=== PATIENT | male | born 1950 | race Two or more races ===

== ENCOUNTER 2017-06-25 15:40 | Emergency (ER) | payer BC, OTHER ==
[2017-06-25 16:03] VITALS: BP 160/81; PULSE 96; TEMP 99; BMI 26.6
[2017-06-25] MEDS ORDERED: morphine CARPU-JECT 4 MG/1 ML DISP.SYRIN ONE ×2 (16:04→17:46)
[2017-06-25] MEDS ORDERED: morphine CARPU-JECT 4 MG/1 ML DISP.SYRIN IVPUSH ONE ×2 (16:04→17:44)
[2017-06-25] MEDS ORDERED: ONDANSETRON 4 MG/2 ML VIAL ONE (16:04)
[2017-06-25] MEDS ORDERED: ONDANSETRON 4 MG/2 ML VIAL IVPUSH ONE (16:04)
[2017-06-25 16:33] LABS: BASOPHIL 1.2 % (0-2.0); EOSINOPHIL 0.9 % (0-4.5); MCH 30.6 pg (25.7-33.7); MCHC 34.1 g/dl (32.0-35.9); MEAN CELL VOLUME 89.8 fl (80-96); MEAN PLT VOLUME 7.9 fl (7.5-11.1); NEUTROPHILS 80.4 % (42.8-82.8); PLATELET COUNT 266 K/MM3 (134-434); RDW 12.1 % (11.9-15.9)
[2017-06-25] MEDS ORDERED: DIPHTH,PERTUSS(ACELL),TET 0.5 ML DISP.SYRIN IM ONE (16:35)
[2017-06-25] MEDS ORDERED: ceFAZolin 2 GRAM PREMIX BAG IVPB ONE (16:35)
[2017-06-25 16:36] LABS: ACTIVATED PTT 25.9 SECONDS (24.0-38.9)
[2017-06-25 16:38] LABS: ALBUMIN 4.1 g/dl (3.5-5.0); ALK PHOS 64 U/L (32-92); ANION GAP 7 (8-16); BILIRUBIN,TOTAL 0.9 mg/dl (0.2-1.0); CALCIUM 9.3 mg/dl (8.4-10.2); CO2 24 mmol/L (22-28); CREATININE 1.1 mg/dl (0.6-1.3); GLUCOSE,RANDOM 169 mg/dl (74-106); SGOT/AST 25 U/L (10-42); SGPT/ALT 18 U/L (10-40); TOT PROT 7.1 g/dl (6.4-8.3)
[2017-06-25 16:41] LABS: INR 1.1 (0.82-1.09); PROTHROMBIN TIME (PATIENT) 12.3 SEC (10.2-13.0)
[2017-06-25] MEDS ORDERED: ceFAZolin SODIUM 1 GM VIAL ONE (17:32)
--- NOTE | 2017-06-25 17:44 | PDOC ---
History of Present Illness <Kathleen Montejo - Last Filed: 06/25/17 18:46> - History of Present Illness Initial Comments: 06/25/17 17:44 " The patient is a 67 year old male, with a significant past medical history of hypertension, who presents to the emergency department with injury to right foot sustained while at work today. 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 He states that his leg was lifted about a foot in the air before he was able to free it. He states he feels his right foot was crushed between the equipment. Denies headstrike/LOC. Denies falling to the ground or injuring anything else. He states he is able to move his toes and he denies decreased sensation to the area. The patient reports swelling and bruising to the right foot. The patient was wearing sneakers at the time of the accident. He denies chest pain, shortness of breath, headache and dizziness. He denies fever, chills, nausea, vomit, diarrhea and constipation. He denies dysuria, frequency, urgency and hematuria. Allergies: NKDA Social history: ppd tobacco use. Occasional alcohol consumption. PCP - Dr. Cornel Vargas <Marco Castillo - Last Filed: 06/25/17 19:55> - General Chief Complaint: Injury Stated Complaint: RT ANKLE INJURY Time Seen by Provider: 06/25/17 15:46 Past History <Kathleen Montejo - Last Filed: 06/25/17 18:46> - Past Medical History HTN: Yes - Suicide/Smoking/Psychosocial Hx Smoking History: Current every day smoker Have you smoked in the past 12 months: Yes Number of Cigarettes Smoked Daily: 20 Information on smoking cessation initiated: Yes 'Breaking Loose' booklet given: 06/25/17 Hx Alcohol Use: (social) <Marco Castillo - Last Filed: 06/25/17 19:55> - Past Medical History Allergies/Adverse Reactions: Allergies Allergy/AdvReac Type Severity Reaction Status Date / Time No Known Allergies Allergy Verified 06/25/17 15:44 Home Medications: Ambulatory Orders Cephalexin [Keflex] 500 mg PO BID #14 capsule 06/25/17 Lisinopril 5 mg PO DAILY 06/25/17 Oxycodone HCl/Acetaminophen [Percocet 5-325 mg Tablet] 1 tab PO Q6H #10 tablet MDD 4 tabs 06/25/17 Review of Systems - Review of Systems Comments:: 06/25/17 17:47 """GENERAL/CONSTITUTIONAL: No fever or chills. No weakness. HEAD, EYES, EARS, NOSE AND THROAT: No change in vision. No ear pain or discharge. No sore throat. CARDIOVASCULAR: No chest pain or shortness of breath. RESPIRATORY: No cough, wheezing, or hemoptysis. GASTROINTESTINAL: No nausea, vomiting, diarrhea or constipation. GENITOURINARY: No dysuria, frequency, or change in urination. MUSCULOSKELETAL: (+) pain, swelling, bruising and open wound to right foot s/p traumatic injury. No neck or back pain. SKIN: (+) open wound to right foot. No rash NEUROLOGIC: No headache, vertigo, loss of consciousness, or change in strength/ sensation. ENDOCRINE: No increased thirst. No abnormal weight change. HEMATOLOGIC/LYMPHATIC: No anemia, easy bleeding, or history of blood clots. ALLERGIC/IMMUNOLOGIC: No hives or skin allergy. """ <Marco Castillo - Last Filed: 06/25/17 19:55> *Physical Exam - Vital Signs Last Vital Signs Temp Pulse Resp BP Pulse Ox 99 F 96 H 18 160/81 96 06/25/17 15:40 06/25/17 15:40 06/25/17 15:40 06/25/17 15:40 06/25/17 15:40 <Kathleen Montejo - Last Filed: 06/25/17 18:46> - Vital Signs Last Vital Signs Temp Pulse Resp BP Pulse Ox 99 F 96 H 18 160/81 96 06/25/17 15:40 06/25/17 15:40 06/25/17 15:40 06/25/17 15:40 06/25/17 15:40 - Physical Exam Comments: 06/25/17 17:48 """GENERAL: Awake, alert, and fully oriented, in no acute distress HEAD: No signs of trauma EYES: PERRLA, EOMI, sclera anicteric, conjunctiva clear ENT: Auricles normal inspection, hearing grossly normal, nares patent, oropharynx clear without exudates. Moist mucosa NECK: Nontender, no stepoffs, Normal ROM, supple, no lymphadenopathy, JVD, or masses LUNGS: Breath sounds equal, clear to auscultation bilaterally. No wheezes, and no crackles HEART: Regular rate and rhythm, normal S1 and S2, no murmurs, rubs or gallops ABDOMEN: Soft, nontender, normoactive bowel sounds. No guarding, no rebound. No masses EXTREMITIES: (+) Right foot - with significant swelling to bilateral malleoli. 3cm stellate laceration to dorsum of foot, distal pulses intact, sensation intact to light touch NEUROLOGICAL: Cranial nerves II through XII intact. 5/5 strength and sensation in all extremities, Normal speech, normal gait SKIN: Warm, Dry, normal turgor, no rashes or lesions noted. """ <AnnaMarco - Last Filed: 06/25/17 19:55> Procedures - Splinting Splint Location: Right: Ankle Pre-Proc Neuro Vasc Exam: normal Hand-Made Type: fiberglass Splint Type: Yes: Short Leg Post-Proc Neuro Vasc Exam: normal Filiberto Bandage: yes, 3" - Laceration/Wound Repair Right Dorsal Foot Wound Length: 2.6 to 5.0 cm Wound Explored: clean Wound's Depth, Shape: superficial, linear Irrigated w/ Saline: Yes Anesthesia: 1% Lidocaine Wound Debrided: minimal Wound Repaired With: Sutures Suture Size/Type: 3:0 Number of Sutures: 6 Layer Closure: No Sterile Dressing Applied: Yes Splint Applied: Yes Type of Splint Applied: Posterior short leg <AnnaMarco - Filed: 06/25/17 19:55> ED Treatment Course - LABORATORY CBC & Chemistry Diagram: 06/25/17 16:10 06/25/17 16:10 - ADDITIONAL ORDERS Additional order review: Laboratory Results 06/25/17 06/25/17 16:10 16:10 PT with INR 12.3 INR 1.10 PTT (Actin FS) 25.9 L Sodium 131 L Potassium 4.0 Chloride 100 Carbon Dioxide 24 Anion Gap 7 L BUN 18 Creatinine 1.1 Creat Clearance w eGFR > 60 Random Glucose 169 H Calcium 9.3 Total Bilirubin 0.9 AST 25 ALT 18 Alkaline Phosphatase 64 Total Protein 7.1 Albumin 4.1 06/25/17 16:10 RBC 4.41 MCV 89.8 MCHC 34.1 RDW 12.1 MPV 7.9 Neutrophils % 80.4 Lymphocytes % 9.3 Monocytes % 8.2 Eosinophils % 0.9 Basophils % 1.2 - RADIOLOGY Radiograph Interpretation: EXAM#: TYPE/EXAM: RESULT: RAD/ANKLE FOOT-RIGHT* RAD/CHEST X-RAY PORTABLE* RAD/LEG TIB/FIB-RIGHT Status post fall Chest x-ray, frontal view. No prior is available for comparison. The cardiac silhouette is within normal limits in size with mild unfolding of the aortic arch and curvilinear calcification of its wall. There are mild perihilar increased lung markings without evidence of focal infiltrates. Mild to moderate elevation of the right hemidiaphragm. Mediastinum and visualized osseous structures appear intact with mild dextroscoliosis of the thoracic spine and mild degenerative disc disease Impression: See discussion above. No acute cardiopulmonary disease is present X-ray of the right leg 4 views were submitted for evaluation. There are vascular calcifications, posteriorly. A faint lucent line is seen at the tip of the medial malleolus suspicious for a fracture. The ankle mortise is intact Impression: Nondisplaced fracture at the tip of the medial malleolus X-ray of the right foot and ankle, 6 views. There is [id number] lateral and mild medial malleolus soft tissue swelling. Lucent line at the tip of the medial malleolus consistent with a nondisplaced avulsion fracture. There is cortical interruption along lateral margin of the lateral malleolus seen on a single image only. Cannot rule out a nondisplaced fracture. There is also a questionable lucent line seen in medial aspect of the navicular bone, seen on the frontal view only. Cannot rule out a nondisplaced fracture. Minimal osteoarthritic changes involving the first metatarsal phalangeal joint. Impression: Nondisplaced fracture at the tip of the medial malleolus. Bimalleolar soft tissue swelling, lateral more than medial. Questionable nondisplaced lateral malleolar fracture. There is also a lucent line in medial aspect of the navicular bone seen on the frontal view of the right foot only. Cannot rule out a nondisplaced fracture. Correlation with CT scan of the right foot and ankle is needed for further evaluation Reported By: Daryl Mane MD 06/25/17 1680 - Medications Given in the ED: ED Medications Discontinued Medications Generic Name Dose Route Start Last Admin Trade Name Freq PRN Reason Stop Dose Admin Cefazolin Sodium/Dextrose 2 gm 06/25/17 16:35 06/25/17 17:55 Ancef 2 Gm Premixed Ivpb - IVPB 06/25/17 16:36 2 gm ONCE ONE Administration Diphtheria/Tetanus/Acell Pertussis 0.5 ml 06/25/17 16:35 06/25/17 17:20 Boostrix - IM 06/25/17 16:36 0.5 ml .ONCE ONE Administration Morphine Sulfate 4 mg 06/25/17 16:04 06/25/17 16:10 Morphine Injection - IVPUSH 06/25/17 16:05 4 mg ONCE ONE Administration Morphine Sulfate 4 mg 06/25/17 17:44 06/25/17 17:50 Morphine Injection - IVPUSH 06/25/17 17:45 4 mg ONCE ONE Administration Ondansetron HCl 4 mg 06/25/17 16:04 06/25/17 16:05 Zofran Injection IVPUSH 06/25/17 16:05 4 mg ONCE ONE Administration <Kathleen Montejo - Last Filed: 06/25/17 18:46> - LABORATORY CBC & Chemistry Diagram: 06/25/17 16:10 06/25/17 16:10 - ADDITIONAL ORDERS Additional order review: Laboratory Results 06/25/17 06/25/17 16:10 16:10 PT with INR 12.3 INR 1.10 PTT (Actin FS) 25.9 L Sodium 131 L Potassium 4.0 Chloride 100 Carbon Dioxide 24 Anion Gap 7 L BUN 18 Creatinine 1.1 Creat Clearance w eGFR > 60 Random Glucose 169 H Calcium 9.3 Total Bilirubin 0.9 AST 25 ALT 18 Alkaline Phosphatase 64 Total Protein 7.1 Albumin 4.1 06/25/17 16:10 RBC 4.41 MCV 89.8 MCHC 34.1 RDW 12.1 MPV 7.9 Neutrophils % 80.4 Lymphocytes % 9.3 Monocytes % 8.2 Eosinophils % 0.9 Basophils % 1.2 - RADIOLOGY Radiology Studies Ordered: Category Date Time Status ANKLE & FOOT-RIGHT* [RAD] Stat Radiology 06/25/17 15:59 Ordered CHEST X-RAY PORTABLE* [RAD] Stat Radiology 06/25/17 15:59 Ordered LEG TIB/FIB-RIGHT [RAD] Stat Radiology 06/25/17 15:59 Ordered - Medications Given in the ED: ED Medications Discontinued Medications Generic Name Dose Route Start Last Admin Trade Name Freq PRN Reason Stop Dose Admin Diphtheria/Tetanus/Acell Pertussis 0.5 ml 06/25/17 16:35 06/25/17 17:20 Boostrix - IM 06/25/17 16:36 0.5 ml .ONCE ONE Administration Morphine Sulfate 4 mg 06/25/17 16:04 06/25/17 16:10 Morphine Injection - IVPUSH 06/25/17 16:05 4 mg ONCE ONE Administration Ondansetron HCl 4 mg 06/25/17 16:04 06/25/17 16:05 Zofran Injection IVPUSH 06/25/17 16:05 4 mg ONCE ONE Administration <Marco Castillo - Last Filed: 06/25/17 19:55> Medical Decision Making - Medical Decision Making 06/25/17 18:46 Patient's case was discussed with Dr. Maldonado, orthopedic surgeon, at this time. <Kathleen Montejo - Last Filed: 06/25/17 18:46> - Medical Decision Making 06/25/17 17:49 67 M with injury to R foot. Possible ankle fx. No evidence of compartment syndrome - compartments soft, sensation intact, pulses palpable. - Labs - XRs - analgesia - Ancef, Tdap 06/25/17 19:15 XR with nondisplaced medial mal fx, no other definite fractures visualized by radiologist. I spoke with Dr. Oh, orthopedist marketing production specialist, who reviewed imaging results with me. He agrees with plan to splint patient and have him follow up in clinic tomorrow. Pt's laceration irrigated with saline and probed - wound is shallow, with NO evidence of open fracture. Compartments remain soft, sensation intact, pulses palpable. 06/25/17 19:52 Laceration repaired with 6 sutures. RLE placed in posterior short leg splint. <Marco Castillo - Last Filed: 06/25/17 19:55> *DC/Admit/Observation/Transfer - Attestations Scribe Attestion: 06/25/17 18:28 Documentation prepared by Kathleen Montejo, acting as medical receptionist medical assistant for Marco Castillo MD, <Kathleen Montejo - Last Filed: 06/25/17 18:46> - Attestations Physician Attestion: 06/25/17 19:55 I, Dr. Marco Castillo MD, attest that this document has been prepared under my direction and personally reviewed by me in its entirety. I further attest, that it accurately reflects all work, treatment, procedures and medical decision -making performed by me. <Marco Castillo - Last Filed: 06/25/17 19:55> Diagnosis at time of Disposition: Ankle fracture - Discharge Dispostion Disposition: HOME Condition at time of disposition: Stable - Prescriptions Prescriptions: Cephalexin [Keflex] 500 mg PO BID #14 capsule Oxycodone HCl/Acetaminophen [Percocet 5-325 mg Tablet] 1 tab PO Q6H #10 tablet MDD 4 tabs - Referrals Referrals: Cornel Vargas MD [Primary Care Provider] - Marco Iraheta MD [Staff Physician] - - Patient Instructions Printed Discharge Instructions: DI for Ankle Fracture Additional Instructions: You have an ankle fracture. You MUST follow up with an orthopedic surgeon within 48 hours to have it re-evaluated, as it may require surgical repair. Keep your leg in the splint and completely immobilized until you are able to see an orthopedist. Call the number provided to make an appointment with our orthopedics clinic. Take the antibiotics as prescribed to prevent infection. Take one percocet every 6 hours as needed for pain. If you experience worsening pain, swelling, redness, numbness, or any other concerning symptoms, return to the ER immediately.
--- NOTE | 2017-06-26 11:44 | EKG ---
Test Reason : Blood Pressure : / mmHG Vent. Rate : 096 BPM Atrial Rate : 096 BPM P-R Int : 158 ms QRS Dur : 090 ms QT Int : 332 ms P-R-T Axes : 066 039 053 degrees QTc Int : 419 ms NORMAL SINUS RHYTHM NORMAL ECG NO PREVIOUS ECGS AVAILABLE Confirmed by BONNIE DENTON MD ([id number]) on 06/26/2017 11:44:12 AM Referred By: DR OCAMPO Confirmed By:BONNIE DENTON MD
== END 2017-06-25 20:14 | disposition home or self-care (01) ==
LOC: FER 15:40
PROC: 0HQMXZZ Repair Right Foot Skin, External Approach (ICD-10-PCS; principal; 2017-06-25)
PROC: 3E03329 Introduction of Other Anti-infective into Peripheral Vein, Percutaneous Approach (ICD-10-PCS; 2017-06-25)
PROC: 3E033NZ Introduction of Analgesics, Hypnotics, Sedatives into Peripheral Vein, Percutaneous Approach (ICD-10-PCS; 2017-06-25)
PROC: 3E033GC Introduction of Other Therapeutic Substance into Peripheral Vein, Percutaneous Approach (ICD-10-PCS; 2017-06-25)
PROC: 3E0337Z Introduction of Electrolytic and Water Balance Substance into Peripheral Vein, Percutaneous Approach (ICD-10-PCS; 2017-06-25)
PROC: 3E0234Z Introduction of Serum, Toxoid and Vaccine into Muscle, Percutaneous Approach (ICD-10-PCS; 2017-06-25)
DX: S82.54XA Nondisplaced fracture of medial malleolus of right tibia, initial encounter for closed fracture (principal); W23.0XXA Caught, crushed, jammed, or pinched between moving objects, initial encounter; Y93.89 Activity, other specified; Y92.9 Unspecified place or not applicable; Y99.0 Civilian activity done for income or pay; I10 Essential (primary) hypertension; F17.210 Nicotine dependence, cigarettes, uncomplicated
CPT/HCPCS: 36415; 71010-TC; 73590-TC-RT; 73610-TC-RT; 73630-TC-RT; 80053; 85025; 85610; 85730; 86850; 86900; 86901; 90715; 93005; 99284-25